=== PATIENT | male | born 2005 | race Caucasian/White ===

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

== ENCOUNTER 2025-01-19 06:23 | Emergency (ER) | payer BC, MEDICAID, SELFPAY ==
[2025-01-19 06:29] VITALS: BP 148/93; PULSE 71; RESP 18; TEMP 36.9; O2SAT 97; BMI 36.7
--- NOTE | 2025-01-19 06:33 | W.ED.SKABFB ---
HPI - Skin/Abscess/Foreign Bdy General: Chief complaint: Skin/Abscess/Foreign Body Stated complaint: blisters on back Time Seen by Provider: 01/19/25 06:24 History of Present Illness: 19-year-old male presents to the emergency room complaining of severe sunburn to his upper torso arms and face. He has a blistered area on the shoulders. Symptoms have caused some significant nausea but no vomiting. He has used topical [id number] medications and analgesics overnight Associated symptoms: Deny chills or fever(s) Related Data Previous Rx's ?Medication ?Instructions ?Recorded omeprazole 20 mg capsule,delayed 20 mg PO DAILY PRN acid reflux #30 11/19/24 release caps ondansetron 4 mg disintegrating 4 mg PO Q8H PRN nausea and 11/19/24 tablet vomiting #14 tabs sulfamethoxazole 800 1 tab PO BID 10 days #20 tabs 12/05/24 mg-trimethoprim 160 mg tablet cephalexin 500 mg capsule 500 mg PO BID 7 days #14 caps 12/18/24 mupirocin 2 % topical ointment 1 applic topical BID #15 grams 12/18/24 diclofenac sodium 75 mg 75 mg PO Q12H PRN pain #20 tabs 01/19/25 tablet,delayed release lidocaine 5 % topical cream 1 applic topical QID PRN pain #30 01/19/25 grams promethazine 25 mg tablet 25 mg PO Q6H PRN nausea and 01/19/25 vomiting #20 tabs Allergies Allergy/AdvReac Type Severity Reaction Status Date / Time No Known Allergies Allergy Verified 12/18/24 07:55 Review of Systems Const: Denies: fever(s) or chills Card: Denies: chest pain Resp: Denies: dyspnea GI: Denies: abdominal pain : Denies: dysuria, urinary frequency or urinary urgency Musc: Denies: neck pain or back pain Skin/Breast: Reports: erythema, skin pain, skin tenderness and new lesions (Blistering shoulders upper back) [facility] ED PFSH: Medical History Vomiting GERD (gastroesophageal reflux disease) Viral syndrome Social History Smoking and tobacco/nicotine status: never used tobacco/nicotine Physical Exam Const: COMMON NORMALS: no acute distress GENERAL APPEARANCE: cooperative ORIENTATION/CONSCIOUSNESS: Yes awake, Yes oriented to person, Yes oriented to place and Yes oriented to time HENMT: COMMON NORMALS: normocephalic, atraumatic and hearing grossly normal bilaterally HEAD & SCALP: normocephalic and atraumatic Resp: COMMON NORMALS: normal respiratory effort, No retractions, No use of accessory muscles and clear to auscultation bilaterally AUSCULTATION: clear to auscultation bilaterally Cardio: COMMON NORMALS: regular rate, regular rhythm and No murmurs present (Cardio) RATE: regular rate RHYTHM: regular rhythm Extremity: COMMON NORMALS: normal to inspection, capillary refill normal, no clubbing, cyanosis or edema, no calf tenderness and no pedal edema Neuro: SENSORIUM/ORIENTATION: Yes oriented to person, Yes oriented to place and Yes oriented to time Skin: OTHER: Mild blistering of the shoulders and upper back no large blisters noted several small. Combination first and second-degree sutton on the face neck upper torso and extremities Course Vital Signs: Vital signs: Vital Signs Temperature 98.4 F 01/19/25 06:29 Pulse Rate 71 01/19/25 06:29 Respiratory Rate 18 01/19/25 06:29 Blood Pressure 148/93 01/19/25 06:29 Pulse Oximetry 97 01/19/25 06:29 Oxygen Delivery Me thod Room Air 01/19/25 06:29 MDM - Skin/Abscess/Foreign Bdy Medicial Decision Making Topical medications. Oral NSAIDs. Prevent further exposure. Patient given Toradol promethazine here. Encourage fluid intake. No radiology studies performed this visit Discharge Plan Discharge Patient Disposition: Home Clinical Impression: Sunburn of second degree Condition: Stable Prescriptions: New lidocaine 5 % cream 1 applic topical QID PRN (Reason: pain) Qty: 30 0RF promethazine 25 mg tablet 25 mg PO Q6H PRN (Reason: nausea and vomiting) Qty: 20 0RF diclofenac sodium 75 mg tablet,delayed release (DR/EC) 75 mg PO Q12H PRN (Reason: pain) Qty: 20 0RF No Action sulfamethoxazole-trimethoprim 800-160 mg tablet 1 tab PO BID 10 Days Qty: 20 0RF mupirocin 2 % ointment 1 applic topical BID Qty: 15 0RF cephalexin 500 mg capsule 500 mg PO BID 7 Days Qty: 14 0RF omeprazole 20 mg capsule,delayed release(DR/EC) 20 mg PO DAILY PRN (Reason: acid reflux) Qty: 30 0RF ondansetron 4 mg tablet,disintegrating 4 mg PO Q8H PRN (Reason: nausea and vomiting) Qty: 14 0RF Discharge Orders: Discharge ED (Routine); Ordered 01/19/25 Ordered By: Tripp Mejia Referrals: Christina Thapa NP [Primary Care Provider, Family Practice] Discharge Diet: Usual diet Discharge Activity: Increase activity as tolerated Patient Instructions: Sunburn (ED), Opioid Safety, Pain Management Activity Restrictions/Additional Instructions: Thank you for choosing [facility] for your healthcare needs today. It is very important that you follow up as instructed or that you return to the Emergency Department should you have concerns or if your condition changes or worsens in any way. You were seen in the emergency room with complaints of sunburn. On exam you have a combination of first and second-degree sunburn on your back shoulders and chest. Expect that you will have further blistering. You can apply topical [id number] medications such as aloe vera or lidocaine containing lotions or combinations for relief. You were given diclofenac and promethazine to use as needed. Avoid further exposure to the sun. Wear sunscreen whenever you will be outdoors and also limit sunburn by limiting exposure to the sunlight with appropriate hats and clothing. 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
[2025-01-19] MEDS: ketorolac 30 mg/mL INJ IVP (06:50)
[2025-01-19] MEDS: promethazine 25 mg/mL SDV 1 mL IM (06:51)
[2025-01-19 07:00] VITALS: BP 148/93; PULSE 84; O2SAT 94
== END 2025-01-19 07:08 | disposition home or self-care (01) ==
PROVIDERS: Emergency Provider Family Medicine
DX: L55.1 Sunburn of second degree (principal)
CPT/HCPCS: 96372; 96374; 99284; J1885; J2550